=== PATIENT | female | born 1940 | race Caucasian/White ===

== ENCOUNTER 2022-09-25 11:30 | Day surgery (SDC) | payer OTHER ==
[2022-09-24 14:18] LABS: Absolute Lymphocytes (CBC) 1.6 K/uL (0.7-4.9); Hematocrit 33.8 % (36.0-45.0); Lymphocytes % 23.4 % (15.3-44.8); MCV 93.8 fL (80-100); MPV 9.5 fL (7.6-11.3)
[2022-09-24 14:21] LABS: Protime INR 0.98
[2022-09-24 14:36] LABS: Potassium 4.2 mmol/L (3.5-5.1)
--- NOTE | 2022-09-24 14:51 | RAD REPORT ---
EXAM DESCRIPTION: Raghu Anaya (2 Views)09/24/2022 2:17 pm CLINICAL HISTORY: Preop for cardiac catheterization COMPARISON: 2017 FINDINGS: The lungs appear clear of acute infiltrate. The heart is normal size IMPRESSION: No acute abnormalities displayed
[2022-09-25] MEDS ORDERED: LIDOCAINE 1% 20 ML MDV ONE (11:41)
[2022-09-25] MEDS ORDERED: NA CHLORIDE 0.9% 500 ML ONE (11:41)
[2022-09-25] MEDS ORDERED: HEPA 1000U/500MLS 2,000 UNIT/1,000 ML BAG IV ONE (11:41)
[2022-09-25] MEDS ORDERED: MIDAZOLAM HCL 2 MG/2 ML INJ ONE (11:42)
[2022-09-25] MEDS ORDERED: ASPIRIN 325 MG TAB ONE (11:42)
[2022-09-25] MEDS ORDERED: FENTANYL CITR 100 MCG/2 ML ONE (11:42)
[2022-09-25] MEDS ORDERED: VERAPAMIL HCL 10 MG/4 ML VIAL IV ONE (11:42)
[2022-09-25] MEDS ORDERED: CLOPIDOGREL 75 MG TABLET ONE (11:42)
[2022-09-25] MEDS ORDERED: HEPARIN 5000 UNIT/ML 1 ML VIAL ONE (11:42)
[2022-09-25] MEDS ORDERED: TICAGRELOR 90 MG TABLET PO ONE (11:43)
[2022-09-25] MEDS ORDERED: HEPARIN 10,000 UNIT/10 ML VIAL IV ONE (11:43)
[2022-09-25] MEDS ORDERED: NITROGLYCERIN 100 MCG/ML SYR (for cath lab use only) IV ONE (11:43)
[2022-09-25] MEDS ORDERED: NITROGLYCERIN/D5W 25 MG/250 ML BTL IV ONE (11:43)
[2022-09-25] MEDS ORDERED: ATROPINE SULF 1 MG/10 ML SYR IV ONE (11:43)
[2022-09-25] MEDS ORDERED: REGADENOSON 0.4 MG/5 ML SYR IV ONE (12:25)
--- NOTE | 2022-09-25 16:57 | EKG ---
Test Date: 2022-09-24 Test Time: 13:58:30 Biomedical Photographer: ANA MEASUREMENT RESULTS: Intervals: Rate: 84 OH: 206 QRSD: 148 QT: 414 QTc: 489 [place]: P: 66 OH: 206 QRS: -9 T: 132 INTERPRETIVE STATEMENTS: Sinus rhythm with premature atrial complexes Left bundle branch block Abnormal ECG No previous ECG available for comparison Electronically Signed On 09-25-22 16:54:39 BR[employer] FORMER by Edison Randle
[2022-09-25 17:38] VITALS: BP 167/71; O2SAT 97
== END 2022-09-25 17:35 | disposition home or self-care (01) ==
LOC: CCL 11:30
PROVIDERS: ATTEND Internal Medicine
DX: I25.110 Atherosclerotic heart disease of native coronary artery with unstable angina pectoris (principal); I44.7 Left bundle-branch block, unspecified; Z88.0 Allergy status to penicillin
CPT/HCPCS: 93005; 85025; 80048; 36415; 85610; 82947; 85730; 71046; 93458; 93571; C1893; Q9966; J2001; J1644 ×2; J2250; J3010; J2785; J7040; C1769; J0461